=== PATIENT | female | born 2000 | race Caucasian/White ===

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

== ENCOUNTER 2022-01-14 20:13 | Emergency (ER) | payer OTHER ==
[~2022-01-14] VITALS: Ht 162.6 cm; Wt 61.4 kg
[2022-01-14 20:16] VITALS: BP 122/75
[2022-01-14] MEDS ORDERED: HYDROCODONE/ACETAMINOPHEN 5-325 MG TABLET PO ONE (21:15)
[2022-01-14] MEDS ORDERED: HYDR-4723 PO (21:37)
[2022-01-14] MEDS ORDERED: IBUP-2070 PO (21:39)
[2022-01-14] MEDS ORDERED: BACI28OI29 TP (21:39)
[2022-01-14] MEDS ORDERED: NEOMYCIN/BACITRACIN/POLYMYXIN B OINTMENT PACKET TP ONE (21:45)
== END 2022-01-14 22:00 | disposition home or self-care (01) ==
LOC: EMS 20:14
DX: T24.212A Burn of second degree of left thigh, initial encounter (principal); X08.8XXA Exposure to other specified smoke, fire and flames, initial encounter; Y93.G3 Activity, cooking and baking; Y92.89 Other specified places as the place of occurrence of the external cause; Y99.8 Other external cause status
CPT/HCPCS: 16000; 16020; 99283